=== PATIENT | male | born 1970 | race Caucasian/White ===

== ENCOUNTER → 2019-12-26 | Outpatient (CLI) | payer BC ==
[~2019-12-26] MED LIST: CEPH500 PO; CLOT1TC TOP; DULO30 PO; ERYT.5TO OD; FLUC150A PO; IBUP400 PO; NORCO PO; TIZANIDINE PO
[2019-12-26 16:15] LABS: BASOPHILS ABSOLUTE AUTO 0.05 K/mm3 (0.00-0.23); BASOPHILS PERCENT AUTO 1 % (0-2); EOSINOPHILS ABSOLUTE AUTO 0.24 K/mm3 (0.00-0.68); EOSINOPHILS PERCENT AUTO 4 % (0-6); Hematocrit 43.6 % (37.0-53.0); Hemoglobin 14.9 g/dL (13.5-17.5); IMMATURE GRAN ABSOLUTE AUTO 0.02 K/mm3 (0.00-0.10); IMMATURE GRAN PERCENT AUTO 0 % (0-1); LYMPHOCYTES PERCENT AUTO 20 % (21-46); MONOCYTES ABSOLUTE AUTO 0.49 K/mm3 (0.16-1.47); MONOCYTES PERCENT AUTO 8 % (4-13); Mean Corpuscular HGB 29.6 pg (26.0-34.0); Mean Corpuscular HGB Conc 34.2 g/dL (31.5-36.5); Mean Corpuscular Volume 87 fL (80-100); Mean Platelet Volume 10.7 fL (9.1-12.4); NEUTROPHILS ABSOLUTE AUTO 4.35 K/mm3 (1.96-9.15); NEUTROPHILS PERCENT AUTO 67 % (41-73); Platelet Count 453 K/mm3 (150-400); RDW Coefficient Variation 14.6 % (11.7-14.2); RDW Standard Deviation 46.1 fL (35.1-46.3); Red Blood Cell Count 5.04 M/mm3 (4.30-5.90); White Blood Cell Count 6.45 K/mm3 (4.00-11.30)
[2019-12-26 16:28] LABS: Albumin, Blood 4.5 g/dL (3.4-5.0); Albumin/Globulin Ratio 1.2 (0.8-1.8); Bilirubin, Total 0.5 mg/dL (0.1-1.0); Bun/Creatinine Ratio 10.8 (12.0-20.0); Calcium, Blood 9.1 mg/dL (8.5-10.1); Creatinine, Blood 1.3 mg/dL (0.60-1.20); Globulin, Blood 3.8 g/dL (2.2-4.0); Potassium, Blood 4.4 mmol/L (3.5-5.5); Total Protein, Blood 8.3 g/dL (6.4-8.2)
== END ==
LOC: LAB SHORT 16:11 → LAB EV 16:11
PROVIDERS: Physician Assistant
DX: R10.9 Unspecified abdominal pain (principal)
CPT/HCPCS: 80053; 83690; 85025

== ENCOUNTER 2020-12-25 09:20 | Emergency (ER) | payer OTHER, BC ==
[~2020-12-25] VITALS: Ht 182.9 cm; Wt 106.6 kg
[~2020-12-25 09:20] MED LIST changes: +BUPR150ER; +BUSP10 PO; +GABA800; +Hydrocodone Bita5 GM; +MIRT30; +NAPR500EC; +PROAIR DIGIHAL90 MCG; +SERT100 PO; +SIMV40 PO; +TIZA4
[2020-12-25] MEDS ORDERED: ZOLPIDEM TARTRA10 MG PO (09:41)
[2020-12-25] MEDS ORDERED: HYDROCODONE-AC1 EAC7 PO (09:41)
[2020-12-25] MEDS ORDERED: MOTION RELIEF25 M1 PO (09:42)
[2020-12-25] MEDS ORDERED: GABAPENTIN600 MG PO (09:42)
[2020-12-25] MEDS ORDERED: ZOLOFT100 M4 PO (09:42)
[2020-12-25] MEDS ORDERED: ZANAFLEX4 M4 PO (09:42)
[2020-12-25] MEDS ORDERED: Simvastatin40 MG PO (09:42)
[2020-12-25] MEDS ORDERED: Budeprion Xl300 MG PO (09:43)
== END 2020-12-25 11:00 | disposition home or self-care (01) ==
LOC: ER 09:20
DX: M25.511 Pain in right shoulder (principal); I10 Essential (primary) hypertension; E11.9 Type 2 diabetes mellitus without complications; F17.210 Nicotine dependence, cigarettes, uncomplicated; Z88.0 Allergy status to penicillin; Z91.018 Allergy to other foods; Z79.82 Long term (current) use of aspirin; Z79.84 Long term (current) use of oral hypoglycemic drugs; Z79.899 Other long term (current) drug therapy
CPT/HCPCS: 73030; 99283-25